=== PATIENT | male | born 1945 | race Caucasian/White ===

== ENCOUNTER 2018-04-06 19:57 | Observation (INO) ==
[2018-04-06] MEDS ORDERED: *HR* FentaNYL (PF) 100 MCG/2 ML VIAL IVP ONE (20:49)
[2018-04-06] MEDS ORDERED: Ketorolac 15 MG/ML VIAL IVP ONE (20:49)
[2018-04-06] MEDS ORDERED: 0.9 % Sodium Chloride 1,000 ML IVC ONE (20:49)
[2018-04-06] MEDS ORDERED: Ondansetron 4 MG/2 ML VIAL IVP ONE (20:49)
--- NOTE | 2018-04-06 20:52 | Emergency Department Note ---
Disposition Clinical Impression: Renal calculus, left, Hydroureter Hydronephrosis Qualifiers: Hydronephrosis type: unspecified Qualified Code(s): N13.30 - Unspecified hydronephrosis Disposition: Admitted As Inpatient Condition: Good Forms: ED Satisfaction Letter Time of Disposition: 20:59 General Adult HPI - General Chief complaint: ED Urogenital-Male Stated complaint: Kidney Stone Time Seen by Provider: 04/06/18 20:08 Source: patient, EMS Mode of arrival: EMS Limitations: no limitations Nursing Notes Reviewed: Yes Vital Signs Reviewed: Yes - History of Present Illness HPI Narrative: 72-year-old male history of hypertension and diabetes presents to the emergency department via EMS as a transfer from the [place] for left flank pain. Patient experience left flank pain this morning around 8 AM with radiation to the groin. He also reported dysuria. He went to the urgent care who diagnosed in with a 6 mm renal stone in the mid ureter with hydronephrosis and hydroureter. He was sent here for further evaluation and management. He reports nausea at this time. His pain is 7 of 10. No prior history of kidney stones. Pain Scale: 8 - Related Data Allergies Allergy/AdvReac Type Severity Reaction Status Date / Time No Known Allergies Allergy Verified 04/06/18 20:40 All systems ED: reviewed and negative except as stated. Review of Systems: As Per HPI Constitutional: Denies: fever, chills ENT ED: Denies: congestion Cardiovascular: Denies: chest pain Respiratory: Denies: dyspnea Gastrointestinal: Reports: nausea, vomiting. Denies: abdominal pain, diarrhea Genitourinary: Reports: dysuria, hematuria. Denies: urgency Musculoskeletal: Reports: back pain Integumentary: Denies: rash, abrasion Past Medical History - Past Medical History Attestation: Yes The following information was validated with the patient. Source: patient Medical history: Reports: cancer, diabetes Psychiatric history: Reports: no psych history - Social History Smoking Status: Never smoker Alcohol use: Reports: none Drug use: Reports: none Physical Exam - General Limitations: no limitations General appearance: alert, in no apparent distress - Head Head exam: atraumatic, normocephalic, normal inspection - Eye Eye exam: Present: normal appearance, PERRL, EOMI. Absent: scleral icterus - ENT ENT exam: normal exam, normal oropharynx, mucous membranes moist - Neck Neck exam: Present: normal inspection, full ROM, trachea midline - Chest Chest inspection: Present: normal inspection, symmetric chest wall rise - Respiratory Respiratory exam: Present: normal lung sounds bilaterally - Cardiovascular Cardiovascular exam: Present: regular rate, normal rhythm, normal heart sounds. Absent: systolic murmur, diastolic murmur - Abdominal Exam Abdominal exam: Present: soft, Non-Tender, normal bowel sounds. Absent: tenderness, distention, guarding, rebound, rigidity - Extremities Exam Extremities exam: Present: normal inspection, full ROM. Absent: tenderness, pedal edema - Back Exam Back exam: Present: normal inspection, full ROM, tenderness, CVA tenderness (L) - Neurological Exam Neurological exam: Present: alert, oriented X3 - Psychiatric Psychiatric exam: Present: normal affect, normal mood - Skin Skin exam: Present: warm, dry, intact, normal color. Absent: rash, cyanosis, diaphoresis Course Course Narrative: Review the CT scan shows 6 mm calculus in the mid left ureter resulting in moderate hydronephrosis and hydroureter. Labs were performed at outside facility with a WBC of 7.7, hemoglobin 15.8, sodium 134, potassium 5.2, creatinine 1.14 with eGFR greater than 60. Urinalysis shows a large blood and negative nitrite and leukocyte esterase. IV fluids and medications for symptom control. Patient will be admitted. - Consultations Consultation #1: Spoke with on-call hospitalist donte Jose to admit for left renal calculus. No further orders at this time Time: 21:17 Vital Signs Temperature 97.8 F 04/06/18 20:05 Pulse Rate 98 04/06/18 20:05 Respiratory Rate 16 04/06/18 20:05 Blood Pressure 166/93 04/06/18 20:05 O2 Sat by Pulse Oximetry 97 04/06/18 20:05 Temperature 97.8 F 04/06/18 20:05 Pulse Rate 98 04/06/18 20:05 Respiratory Rate 16 04/06/18 20:05 Blood Pressure 166/93 04/06/18 20:05 O2 Sat by Pulse Oximetry 97 04/06/18 20:05 Oxygen Delivery Oxygen Delivery Room Air Medical Decision Making - MDM Narrative Medical decision making narrative: Patient was discussed with my attending physician who agrees with ED management and final disposition. They independently evaluated the patient. Please refer to their attestation to this encounter for additional information. This note was generated by [employer] voice recognition software and as a result grammatical or spelling errors may occur using this program. - Medical Records Medical records reviewed: Yes I reviewed the patient's medical records.
[2018-04-06] MEDS ORDERED: Ketorolac 15 MG/ML VIAL IVP PRN (21:59)
[2018-04-06] MEDS ORDERED: Naloxone 0.4 MG/ML INJ IVP PRN (21:59)
[2018-04-06] MEDS ORDERED: Ondansetron 4 MG/2 ML VIAL IVP PRN (21:59)
[2018-04-06] MEDS ORDERED: Dextrose Gel 15 GM/37.5 ML TUBE PO PRN ×2 (22:03)
[2018-04-06] MEDS ORDERED: D5% in Water 1,000 ML IVC PRN (22:03)
[2018-04-06] MEDS ORDERED: *HR* Dextrose 50 % in Water (Syg) 50 ML SYRINGE IVP PRN (22:03)
[2018-04-06] MEDS ORDERED: Insulin LISPRO 300 UNITS/3 ML VIAL SQ SCH (22:15)
--- NOTE | 2018-04-06 23:02 | Emergency Department Note ---
Disposition Clinical Impression: Renal calculus, left, Hydroureter Hydronephrosis Qualifiers: Hydronephrosis type: unspecified Qualified Code(s): N13.30 - Unspecified hydronephrosis Disposition: Admitted As Inpatient Condition: Good General Adult HPI - General Chief complaint: ED Urogenital-Male Stated complaint: Kidney Stone Time Seen by Provider: 04/06/18 20:08 Source: patient, EMS Mode of arrival: EMS Limitations: no limitations Nursing Notes Reviewed: Yes Vital Signs Reviewed: Yes - History of Present Illness Pain Scale: 2 - Related Data Allergies Allergy/AdvReac Type Severity Reaction Status Date / Time No Known Allergies Allergy Verified 04/06/18 20:40 Constitutional: Denies: fever, chills ENT ED: Denies: congestion Cardiovascular: Denies: chest pain Respiratory: Denies: dyspnea Gastrointestinal: Reports: nausea, vomiting. Denies: abdominal pain, diarrhea Genitourinary: Reports: dysuria, hematuria. Denies: urgency Musculoskeletal: Reports: back pain Integumentary: Denies: rash, abrasion Past Medical History - Past Medical History Medical history: Reports: cancer, diabetes Psychiatric history: Reports: no psych history - Social History Smoking Status: Never smoker Alcohol use: Reports: none Drug use: Reports: none Physical Exam - General Limitations: no limitations General appearance: alert, in no apparent distress Course Vital Signs Temperature 97.8 F 04/06/18 20:05 Pulse Rate 98 04/06/18 20:05 Respiratory Rate 16 04/06/18 20:05 Blood Pressure 166/93 04/06/18 20:05 O2 Sat by Pulse Oximetry 97 04/06/18 20:05 Temperature 97.9 F 04/06/18 22:55 Pulse Rate 103 04/06/18 22:55 Respiratory Rate 18 04/06/18 22:55 Blood Pressure 142/89 04/06/18 22:55 O2 Sat by Pulse Oximetry 96 04/06/18 22:55 Oxygen Delivery Oxygen Delivery Room Air Attestation Statement - Attestation Attestation: I, Geovani Arias MD, personally evaluated this patient and discussed their management with the resident physician. I reviewed the resident's note and agree with the documented findings, medical decision making, and plan of care. 72-year-old male [facility] flank pain which started this morning. No prior history of kidney stones. He was seen at the [facility] and workup there revealed a 6 mm stone in the left ureter with moderate hydroureteronephrosis. Patient was transferred here for urology consultation. On examination patient is well-developed well-nourished well-appearing elderly male in no acute distress. He is alert and oriented 3. There is no cyanosis or diaphoresis. Breath sounds clear and equal bilaterally. Heart regular rate and rhythm. Abdomen soft and nontender with normal bowel sounds. Mild left CVA tenderness. Records from the [facility] reviewed. The hospitalist, Dr. Calderon, was consulted and accepted admission of the patient.
[2018-04-07] MEDS ORDERED: 0.9 % Sodium Chloride 1,000 ML ONE (00:14)
--- NOTE | 2018-04-07 01:24 | Internal Med History&Physical ---
Date of Encounter: 04/07/18 Time of Encounter: 01:24 Internal Medicine - H&P: HPI Chief complaint: Kidney Stone History of present illness: Mr. Collado is a 72 year old male with a past medical history of diabetes who initially presented to the [facility] earlier today due to left-sided flank pain. Patient states that pain began around 8 AM this morning and got steadily worse throughout the day. He describes it as a deep ache, 8 out of 10 in intensity, non-radiating and alleviated with certain movements. Patient denies any fever, chills, dysuria. He was nauseous but did not vomit. Patient went to the [facility] around 2:30 in the afternoon where a CT scan of the abdomen/pelvis was performed showing a 6 mm stone in the left ureter with moderate hydronephrosis. Laboratory workup showed no evidence of leukocytosis. Kidney function was within normal limits. UA showed positive hematuria and negative nitrites and leukocyte esterase. Patient transferred for urology consultation. Past Med Surg Social Fam HX - Past Medical History Medical history: cancer, diabetes Psychiatric history: no psych history - Past Surgical History Additional surgical history: port inserted and removed. liver biopsy - Social History Smoking Status: Never smoker Alcohol use: none Drug use: none Internal Medicine - H&P: Meds Aspirin [Lo-Dose Aspirin EC] 81 mg PO DAILY 04/07/18 [History] Carvedilol [Coreg] 6.25 mg PO BID 04/07/18 [History] Doxycycline Monohydrate [Mondoxyne Nl] 50 mg PO BID 04/07/18 [History] Fluticasone Propionate Nasal [Flonase] 120 spray NS DAILY 04/07/18 [History] Loratadine [Allergy Relief] 10 mg PO DAILY 04/07/18 [History] Losartan [Cozaar] 50 tab PO DAILY 04/07/18 [History] Metformin HCl [Glucophage] 1,000 tab PO BID 04/07/18 [History] Allergy/AdvReac Type Severity Reaction Status Date / Time No Known Allergies Allergy Verified 04/06/18 20:40 All Systems PM: A 10-system review of systems was performed and is negative for pertinent findings except as documented above in the HPI. - Constitutional Constitutional: no chills, no fever(s), no night sweats - EENT Eyes: no change in vision, no discharge, no pain, no photophobia Ears: no ear discharge, no ear pain, no tinnitus Nose, mouth and throat: no dysphagia, no nasal discharge, no neck pain, no sore throat - Cardiovascular Cardiovascular ROS IM: no chest pain, no diaphoresis, no dyspnea, no lightheadedness, no palpitations, no syncope - Respiratory Respiratory: no cough, no dyspnea, no wheezing, no excessive phlegm production - Gastrointestinal Gastrointestinal: no abdominal pain, no diarrhea, no hematemesis, no hematochezi a, no melena, no nausea, no vomiting - Musculoskeletal Musculoskeletal ROS IM: no numbness, no tingling - Integumentary Integumentary IM: no rash, no unusual bruising - Neurological Neurological ROS: no confusion, no convulsions, no focal weakness, no numbness, no tingling, no tremor(s) - Hematologic/Lymphatic Hematologic/Lymphatic: no easy bruising - Constitutional Vitals: Temp Pulse Resp BP Pulse Ox 97.9 F 103 18 142/89 96 04/06/18 22:55 04/06/18 22:55 04/06/18 22:55 04/06/18 22:55 04/06/18 22:55 Exam: General: Alert and oriented 3 lying in bed in no acute distress Skin:Normal color, no rash, no lesions. HEENT:EOM, pupils equal, round and reactive. Cardiovascular:Normal S1 & S2, no rubs, murmurs or gallops. No JVD. Pulse regular. Lungs:Normal breath sounds, no wheezes or crackles. Abdomen:Soft, non-tender, no rigidity. Mild left sided CVA tenderness Extremities:No deformity, no edema or tenderness, no joint swelling or clubbing. Neurological:Normal cognition and motor skills. Pulses:Carotid and radial pulses normal +2. Rest of the physical exam is non contributory Internal Med - H&P Results - Labs CBC & Chem 7: 04/07/18 04:51 04/07/18 04:51 - Assessment and plan (1) Renal calculus, left Current Visit: Yes Status: Acute Assessment and plan: Left-sided 6 mm renal calculus noted on CT scan of the abdomen and pelvis with moderate hydro-nephrosis the setting of significant left-sided flank pain. Pain much better after receiving narcotics in the ED -Continue with Pain control -IV fluids -Give 1 dose of tamsulosin -Urology consult (2) Hydronephrosis Current Visit: Yes Status: Acute Qualifiers: Hydronephrosis type: unspecified Qualified Code(s): N13.30 - Unspecified hydronephrosis (3) Hydroureter Current Visit: Yes Status: Acute (4) Diabetes Current Visit: Yes Status: Acute Assessment and plan: Blood glucose checks. Sliding scale insulin Qualifiers: Qualified Code(s): E11.9 - Type 2 diabetes mellitus without complications (5) Hypertension Current Visit: Yes Status: Acute Assessment and plan: BP mildly elevated likely secondary to pain. Continue pain control -Resume home antihypertensives Qualifiers: Hypertension type: unspecified Qualified Code(s): I10 - Essential (primary) hypertension (6) DVT prophylaxis Current Visit: Yes Status: Acute Assessment and plan: Subcutaneous heparin - Time Spent With Patient Total time spent is greater than 50% in coordination of care (as documented) at patient's floor/unit and/or counseling patient:
[2018-04-07] MEDS ORDERED: OXYCODONE Oral CONC 10 MG/0.5 ML ORAL.SYG SL PRN ×4 (02:12→17:28)
[2018-04-07] MEDS: *HR* Heparin 5,000 UNIT/ML VIAL SQ SCH ×4 (03:03→22:33)
[2018-04-07] MEDS: 0.9 % Sodium Chloride 1,000 ML IVC SCH ×2 (03:13→08:56)
[2018-04-07 05:23] LABS: Basophils % 0.4 %; Eosinophils # 0.1 K/mcL (0.0-0.6); Hematocrit 41.1 % (37.5-50.1); Hemoglobin 14.3 g/dL (12.9-16.9); Immature Granulocytes % 0.3 % (0-4); Lymphocytes # 1.6 K/mcL (0.6-4.6); Lymphocytes % 22.5 %; Mean Corpuscular HGB Conc 34.8 g/dL (31.6-35.5); Mean Corpuscular Hemoglobin 31.2 pg (28.0-33.3); Mean Corpuscular Volume 89.5 fL (83.0-100.0); Mean Platelet Volume 10.6 fL (9.4-12.4); Monocytes # 0.8 K/mcL (0.0-1.3); Neutrophils # 4.6 K/mcL (1.6-8.9); Platelet Count 114 K/mcL (140-400); Red Blood Count 4.59 M/mcL (4.19-5.50); Red Cell Distribution Width 12.7 % (11.5-14.5); Segmented Neutrophils % 64.8 %
[2018-04-07 05:42] LABS: Albumin 4.2 g/dL (3.5-5.7); Albumin/Globulin Ratio 2.8 (1.1-2.2); Bilirubin,Total 1.3 mg/dL (0.3-1.0); Calcium 8.7 mg/dL (8.6-10.3); Globulin 1.5 g/dL (2.4-3.5); Potassium 4.2 mEq/L (3.5-5.1); Total Protein 5.7 g/dL (6.4-8.9)
--- NOTE | 2018-04-07 08:17 | Urology - Consult Note ---
<Christiane Burdick N - Last Filed: 04/07/18 08:15> Date of Encounter: 04/07/18 Time of Encounter: 07:45 - Assessment and Plan (1) Ureteral calculus, left Current Visit: Yes Status: Acute Assessment and plan: Patient is a 72-year-old male who presents with a 6 mm left ureteral stone. Vital signs are stable and afebrile. White blood cell count reassuring. Creatinine slightly elevated at 1.41. Discussed surgical risks and benefits including bleeding, infection, scarring, stricture, damage to urinary tract, anesthesia risks, blood clots. Patient verbalized understanding, and consent has been signed. Patient will remain nothing by mouth. Patient is prepared to undergo a left ureteroscopic stone extraction with holmium laser lithotripsy, basket retrieval, and left ureteral stent placement with Dr. Brasher. (2) Hydronephrosis Current Visit: Yes Status: Acute Qualifiers: Hydronephrosis type: unspecified Qualified Code(s): N13.30 - Unspecified hydronephrosis Urology CN:HPI Consult date: 04/07/18 History of present illness: Patient is a 72-year-old male who presents with a 6mm left ureteral stone and moderate hydronephrosis. Patient presented to the [facility] yesterday with complaints of left-sided flank pain and nausea. Patient underwent a CT scan of abdomen and pelvis revealing a 6 mm ureteral stone and was subsequently transferred to [facility] for urologic intervention. Patient states this is the first renal stone he has ever experienced. Patient does state, however, that he has a family history of renal stones through his brother. Currently, patient states his pain is well-controlled and he is experiencing some mild hesitancy. Patient denies fever, chills, gross hematuria, dysuria, frequency, urgency, incontinence. Past Med Surg Social Fam HX - Past Medical History Medical history: cancer, diabetes Psychiatric history: no psych history - Past Surgical History Additional surgical history: port inserted and removed. liver biopsy - Social History Smoking Status: Never smoker Alcohol use: none Drug use: none Medications and Allergies Aspirin [Lo-Dose Aspirin EC] 81 mg PO DAILY 04/07/18 [History] Carvedilol [Coreg] 6.25 mg PO BID 04/07/18 [History] Doxycycline Monohydrate [Mondoxyne Nl] 50 mg PO BID 04/07/18 [History] Fluticasone Propionate Nasal [Flonase] 120 spray NS DAILY 04/07/18 [History] Hydrocodone/Acetaminophen [Seymour 5-325 Tablet] 1 each PO Q6H 2 Days #8 tablet 04/07/18 [Rx] Loratadine [Allergy Relief] 10 mg PO DAILY 04/07/18 [History] Losartan [Cozaar] 50 tab PO DAILY 04/07/18 [History] Metformin HCl [Glucophage] 1,000 tab PO BID 04/07/18 [History] Allergy/AdvReac Type Severity Reaction Status Date / Time No Known Allergies Allergy Verified 04/06/18 20:40 Review of Systems - Constitutional no chills, no fatigue, no fever(s) - EENT Nose, mouth and throat: no dizziness, no headache(s) - Cardiovascular no chest pain, no diaphoresis, no dyspnea - Respiratory no cough, no dyspnea - Gastrointestinal nausea, no abdominal pain, no vomiting - Genitourinary flank pain (left ), urinary hesitancy, no change in urinary stream, no difficulty urinating, no hematuria, no urinary frequency, no urinary incontinence, no urinary urgency - Musculoskeletal no back pain, no muscle weakness - Integumentary no erythema, no rash - Neurological no confusion, no syncope - Psychiatric no anxiety, no confusion - Hematologic/Lymphatic no easy bleeding, no easy bruising - Allergic/Immunologic no throat swelling, no wheezing Exam Initial Vital Signs Temp Pulse Resp BP Pulse Ox 97.8 F 98 16 166/93 97 04/06/18 20:05 04/06/18 20:05 04/06/18 20:05 04/06/18 20:05 04/06/18 20:05 - General physical appearance Present: well developed, no distress, no pain - Eyes Present: PERRL, normal ocular movement - ENT Present: normal nares, no hearing loss, no congestion - Neck Present: no masses, trachea midline - Respiratory Present: normal respiratory effort - Abdomen Abdomen: Present: soft, non tender - Integumentary Present: no rash, no abnormal pigmentation - Neurologic Present: normal coordination - Musculoskeletal Present: other (normal posture ) Urology Results - Labs 04/07/18 04:51 04/07/18 04:51 Abnormal lab results Plt Count 114 K/mcL (140-400) L 04/07/18 04:51 Sodium 135 mEq/L (136-145) L 04/07/18 04:51 Carbon Dioxide 22 mEq/L (23-29) L 04/07/18 04:51 BUN 27 mg/dL (8-23) H 04/07/18 04:51 Creatinine 1.41 mg/dL (0.70-1.30) H 04/07/18 04:51 Est GFR (Non-Af Amer) 49 (> 60) L 04/07/18 04:51 Glucose 141 mg/dL (70-105) H 04/07/18 04:51 POC Glucose 156 mg/dL (70-99) H 04/06/18 22:50 Total Bilirubin 1.3 mg/dL (0.3-1.0) H 04/07/18 04:51 Serum Total Protein 5.7 g/dL (6.4-8.9) L 04/07/18 04:51 Globulin 1.5 g/dL (2.4-3.5) L 04/07/18 04:51 Albumin/Globulin Ratio 2.8 (1.1-2.2) H 04/07/18 04:51 Diabetes panel 04/07/18 Range/Units 04:51 Sodium 135 L (136-145) mEq/L Potassium 4.2 (3.5-5.1) mEq/L Chloride 103 (98-107) mEq/L Carbon Dioxide 22 L (23-29) mEq/L BUN 27 H (8-23) mg/dL Creatinine 1.41 H (0.70-1.30) mg/dL Glucose 141 H (70-105) mg/dL Calcium 8.7 (8.6-10.3) mg/dL AST 24 (13-39) Units/L ALT 31 (7-52) Units/L Alkaline Phosphatase 37 (34-104) Units/L Albumin 4.2 (3.5-5.7) g/dL Calcium panel 04/07/18 Range/Units 04:51 Calcium 8.7 (8.6-10.3) mg/dL Albumin 4.2 (3.5-5.7) g/dL Pituitary panel 04/07/18 Range/Units 04:51 Sodium 135 L (136-145) mEq/L Potassium 4.2 (3.5-5.1) mEq/L Chloride 103 (98-107) mEq/L Carbon Dioxide 22 L (23-29) mEq/L BUN 27 H (8-23) mg/dL Creatinine 1.41 H (0.70-1.30) mg/dL Glucose 141 H (70-105) mg/dL Calcium 8.7 (8.6-10.3) mg/dL Adrenal panel 04/07/18 Range/Units 04:51 Sodium 135 L (136-145) mEq/L Potassium 4.2 (3.5-5.1) mEq/L Chloride 103 (98-107) mEq/L Carbon Dioxide 22 L (23-29) mEq/L BUN 27 H (8-23) mg/dL Creatinine 1.41 H (0.70-1.30) mg/dL Glucose 141 H (70-105) mg/dL Calcium 8.7 (8.6-10.3) mg/dL Total Bilirubin 1.3 H (0.3-1.0) mg/dL AST 24 (13-39) Units/L ALT 31 (7-52) Units/L Alkaline Phosphatase 37 (34-104) Units/L Albumin 4.2 (3.5-5.7) g/dL All other labs normal. - Imaging CT scan - abdomen: report reviewed CT scan - pelvis: report reviewed Consult Discharge Plan - Plan Referrals: Duarte Brasher MD [Partnered Physician] - 04/25/18 9:00 am () [place],PCP [Primary Care Provider] - 04/12/18 2:30 pm (Follow up will take place in [facility]) Prescriptions: Hydrocodone/Acetaminophen [Seymour 5-325 Tablet] 1 each PO Q6H 2 Days #8 tablet <Duarte Brasher - Last Filed: 04/07/18 16:07> Date of Encounter: 04/07/18 - Assessment and Plan (1) Ureteral calculus, left Current Visit: Yes Status: Acute Assessment and plan: I agree with plan as written by Christiane Burdick. to or today for stone extractino vs stent placement. Exam Initial Vital Signs Temp Pulse Resp BP Pulse Ox 97.8 F 98 16 166/93 97 04/06/18 20:05 04/06/18 20:05 04/06/18 20:05 04/06/18 20:05 04/06/18 20:05 Urology Results - Labs 04/07/18 04:51 04/07/18 04:51 Abnormal lab results Plt Count 114 K/mcL (140-400) L 04/07/18 04:51 Sodium 135 mEq/L (136-145) L 04/07/18 04:51 Carbon Dioxide 22 mEq/L (23-29) L 04/07/18 04:51 BUN 27 mg/dL (8-23) H 04/07/18 04:51 Creatinine 1.41 mg/dL (0.70-1.30) H 04/07/18 04:51 Est GFR (Non-Af Amer) 49 (> 60) L 04/07/18 04:51 Glucose 141 mg/dL (70-105) H 04/07/18 04:51 POC Glucose 156 mg/dL (70-99) H 04/06/18 22:50 Total Bilirubin 1.3 mg/dL (0.3-1.0) H 04/07/18 04:51 Serum Total Protein 5.7 g/dL (6.4-8.9) L 04/07/18 04:51 Globulin 1.5 g/dL (2.4-3.5) L 04/07/18 04:51 Albumin/Globulin Ratio 2.8 (1.1-2.2) H 04/07/18 04:51 Diabetes panel 04/07/18 Range/Units 04:51 Sodium 135 L (136-145) mEq/L Potassium 4.2 (3.5-5.1) mEq/L Chloride 103 (98-107) mEq/L Carbon Dioxide 22 L (23-29) mEq/L BUN 27 H (8-23) mg/dL Creatinine 1.41 H (0.70-1.30) mg/dL Glucose 141 H (70-105) mg/dL Calcium 8.7 (8.6-10.3) mg/dL AST 24 (13-39) Units/L ALT 31 (7-52) Units/L Alkaline Phosphatase 37 (34-104) Units/L Albumin 4.2 (3.5-5.7) g/dL Calcium panel 04/07/18 Range/Units 04:51 Calcium 8.7 (8.6-10.3) mg/dL Albumin 4.2 (3.5-5.7) g/dL Pituitary panel 04/07/18 Range/Units 04:51 Sodium 135 L (136-145) mEq/L Potassium 4.2 (3.5-5.1) mEq/L Chloride 103 (98-107) mEq/L Carbon Dioxide 22 L (23-29) mEq/L BUN 27 H (8-23) mg/dL Creatinine 1.41 H (0.70-1.30) mg/dL Glucose 141 H (70-105) mg/dL Calcium 8.7 (8.6-10.3) mg/dL Adrenal panel 04/07/18 Range/Units 04:51 Sodium 135 L (136-145) mEq/L Potassium 4.2 (3.5-5.1) mEq/L Chloride 103 (98-107) mEq/L Carbon Dioxide 22 L (23-29) mEq/L BUN 27 H (8-23) mg/dL Creatinine 1.41 H (0.70-1.30) mg/dL Glucose 141 H (70-105) mg/dL Calcium 8.7 (8.6-10.3) mg/dL Total Bilirubin 1.3 H (0.3-1.0) mg/dL AST 24 (13-39) Units/L ALT 31 (7-52) Units/L Alkaline Phosphatase 37 (34-104) Units/L Albumin 4.2 (3.5-5.7) g/dL All other labs normal.
[2018-04-07] MEDS ORDERED: Loratadine 10 MG TABLET PO SCH (09:00)
[2018-04-07] MEDS ORDERED: Fluticasone Propionate Nasal 50 MCG/SPRAY BOTTLE NS SCH (09:00)
[2018-04-07] MEDS ORDERED: Aspirin Enteric Coated 81 MG Tablet PO SCH (09:00)
--- NOTE | 2018-04-07 10:04 | Discharge Summary ---
Orders not resulted at time of discharge: Pending orders 04/08/18 04:00 BMP [Basic Metabolic Panel] AM 0400 Complete Blood Count [HEME] AM 0400 Magnesium AM 0400 Date of Encounter: 04/07/18 Time of Encounter: 10:02 - Discharge Diagnosis (1) Renal calculus, left Priority: Primary Status: Acute (2) Hydroureter Priority: Primary Status: Acute (3) Hydronephrosis Priority: Primary Status: Acute Qualifiers: Hydronephrosis type: unspecified Qualified Code(s): N13.30 - Unspecified hydronephrosis (4) Hypertension Priority: Secondary Status: Acute Qualifiers: Hypertension type: unspecified Qualified Code(s): I10 - Essential (primary) hypertension (5) Diabetes Priority: Secondary Status: Acute Qualifiers: Diabetes mellitus type: type 2 Diabetes mellitus [facility] insulin use: without termite treater helper use Diabetes mellitus complication status: without complication Qualified Code(s): E11.9 - Type 2 diabetes mellitus without complications Hospital course: Mr. Collado is a 72 year old male with a past medical history of diabetes who initially presented to the OR earlier today due to left-sided flank pain. Patient stated that pain began around 8 AM this morning and got steadily worse throughout the day. He was nauseous but did not vomit. [facility] where a CT scan of the abdomen/pelvis was performed showing a 6 mm stone in the left ureter with moderate hydronephrosis. Laboratory workup showed no evidence of leukocytosis. Kidney function was elevated with a creatinine of 1.41. I was able to obtain records [facility] that showed what seems like a chronic kidney disease. The patient says he has had issues with his kidneys in the past although he is not exactly what. His creatinine was mildly above baseline at the time around 1.1. He was taken to the OR by Dr. Brasher from urology and underwent left lithrotripsy and stone extraction and stent placement. His kidney function should show some recover towards baseline after his procedure and resolution of the hydronephrosis. He was discharged when cleared by urology post op. He was stable on day of discharge. - Time Spent with Patient Total time spent providing and/or coordinating discharge services: Greater than 30 minutes - Discharge Medications Prescriptions: Hydrocodone/Acetaminophen [[place] 5-325 Tablet] 1 each PO Q6H 2 Days #8 tablet Home Medications: Aspirin [Lo-Dose Aspirin EC] 81 mg PO DAILY 04/07/18 [History] Carvedilol [Coreg] 6.25 mg PO BID 04/07/18 [History] Doxycycline Monohydrate [Mondoxyne Nl] 50 mg PO BID 04/07/18 [History] Fluticasone Propionate Nasal [Flonase] 120 spray NS DAILY 04/07/18 [History] Hydrocodone/Acetaminophen [[place] 5-325 Tablet] 1 each PO Q6H 2 Days #8 tablet 04/07/18 [Rx] Loratadine [Allergy Relief] 10 mg PO DAILY 04/07/18 [History] Losartan [Cozaar] 50 tab PO DAILY 04/07/18 [History] Metformin HCl [Glucophage] 1,000 tab PO BID 04/07/18 [History] Allergies/Adverse Reactions: Allergy/AdvReac Type Severity Reaction Status Date / Time No Known Allergies Allergy Verified 04/06/18 20:40 Date of admission: 04/06/18 21:34 Primary care physician: [facility] Consults: 04/06/18 21:04 Consult to Urology [CONS] Stat Consulting Provider: Urology Barb Reason for Consult: kidney stone Time Notified: 21:05 Call Completed: Yes - Constitutional Vitals: Temp Pulse Resp BP Pulse Ox 98.0 F 96 18 127/79 93 04/07/18 08:29 04/07/18 08:29 04/07/18 08:29 04/07/18 08:29 04/07/18 09:03 Exam: GEN: NAD HEENT: AT, NC, No cyanosis, oral mucosa is moist, No JVD Lymphatics: No lymphadenoapthy Eyes: Extrocular muscles intact, anicteric CVS:RRR. S1, S2, No m/r/g RESP: CTAB ABD: Soft, NT, ND, +BS EXT: No edema, No rashes, 2+ DP NEURO: Nonfocal, CN II-XII intact, No focal motor or sensory deficits Psych: Cooperative, Not anxious or depressed - Patient Status Disposition: Home, Self-Care Condition: Good Overall status at discharge: patient is progressing back to baseline - Discharge Instructions Follow Up With: Duarte Brasher MD [Partnered Physician] - 04/25/18 9:00 am () [facility] [Primary Care Provider[facility] - 04/12/18 2:30 pm (Follow up will take place in [facility]) - Diet and Activity Activity: increase activity as tolerated Diet: diabetic diet
[2018-04-07] MEDS: Insulin LISPRO 300 UNITS/3 ML VIAL SQ SCH ×2 (11:08→16:01)
--- NOTE | 2018-04-07 14:56 | Anesthesia Evaluation PreOp ---
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 History: Denies Any Significant HX Other Medical History: Renal (hydronephrosis), Diabetes Type II Anesthesia History: No Prior Anesthetic Complications, Past Anesthesia Alcohol Use: none Drug use: none Medications and Allergies Aspirin [Lo-Dose Aspirin EC] 81 mg PO DAILY 04/07/18 [History] Carvedilol [Coreg] 6.25 mg PO BID 04/07/18 [History] Doxycycline Monohydrate [Mondoxyne Nl] 50 mg PO BID 04/07/18 [History] Fluticasone Propionate Nasal [Flonase] 120 spray NS DAILY 04/07/18 [History] Hydrocodone/Acetaminophen [[place] 5-325 Tablet] 1 each PO Q6H 2 Days #8 tablet [Rx] Loratadine [Allergy Relief] 10 mg PO DAILY 04/07/18 [History] Losartan [Cozaar] 50 tab PO DAILY 04/07/18 [History] Metformin HCl [Glucophage] 1,000 tab PO BID 04/07/18 [History] Allergy/AdvReac Type Severity Reaction Status Date / Time No Known Allergies Allergy Verified 04/06/18 20:40 - Meds/Allergy Pre-op Review Medications Reviewed: Yes Allergies Reviewed: Yes Beta Blockers on Current Med List: Yes ([id number]) Anesthesia Results - Labs 04/07/18 04:51 04/07/18 04:51 - Imaging EKG: other (patient had multiple cardio/EKG evaluations when he had CLL. He has been stable with no significant cardiac disease.) Anesthesia Exam Selected Entries 04/07/18 11:26 Temperature 97.8 F Pulse Rate 91 Respiratory Rate 18 Blood Pressure 136/85 O2 Sat by Pulse Oximetry 94 Weight: 98 kg NPO (# of Hours): over 8 hours - HEENT Pupil (Motor): Pupils equal Mallampati: II Teeth: Normal Oral Opening: Greater than 3 - Cardiac Rhythm: Regular Murmur: None - Pulmonary Breath Sounds: bilateral Clear Respiratory Effort: Symmetrical Anesthesia Assess/Plan ASA Score: 2 Level of consciousness: Cooperative Anesthetic Plan: General Monitoring Plan: Standard Monitors Recovery Plan: PACU (Discussed GA, risks. Agreed to proceed.)
[2018-04-07] MEDS ORDERED: Lidocaine -MPF 2% 2 ML VIAL ONE (15:38)
[2018-04-07] MEDS ORDERED: *HR* FentaNYL (PF) 100 MCG/2 ML VIAL ONE (15:38)
[2018-04-07] MEDS ORDERED: Ondansetron 4 MG/2 ML VIAL ONE (15:38)
[2018-04-07] MEDS ORDERED: *HR* Propofol 200 MG/20 ML VIAL IVP ONE (15:38)
[2018-04-07] MEDS ORDERED: Dexamethasone 4 MG/ML VIAL ONE (15:38)
[2018-04-07] MEDS ORDERED: *HR* Phenylephrine 10 MG/ML VIAL ONE (16:27)
[2018-04-07] MEDS ORDERED: Acetaminophen IV 1,000 MG/100 ML INFUS..BTL IVPB ONE (17:00)
[2018-04-07] MEDS ORDERED: *HR* OxyCODONE Immed Rel 5 MG TABLET PO PRN (17:00)
[2018-04-07] MEDS ORDERED: *HR* Meperidine 25 MG/ML SYRINGE IVP PRN (17:00)
[2018-04-07] MEDS ORDERED: *HR* HYDROmorphone (PF) 1 MG/ML SYRINGE IVP PRN (17:00)
--- NOTE | 2018-04-07 17:20 | Anesthesia Evaluation Post Op ---
Date of Encounter: 04/07/18 Time of Encounter: 17:20 - Vital Signs Vital Signs: Vital Signs Temperature 97.8 F 04/06/18 20:05 Pulse Rate 98 04/06/18 20:05 Respiratory Rate 16 04/06/18 20:05 Blood Pressure 166/93 04/06/18 20:05 O2 Sat by Pulse Oximetry 97 04/06/18 20:05 Temperature 97.5 F L 04/07/18 16:56 Pulse Rate 84 04/07/18 17:16 Respiratory Rate 16 04/07/18 17:16 Blood Pressure 112/69 04/07/18 17:16 O2 Sat by Pulse Oximetry 97 04/07/18 17:16 Oxygen Delivery Oxygen Delivery Room Air - Airway Airway: Non-obstructed - Cardiovascular Regular Rate - Mental Status Mental Status: Alert & Oriented, Answers Appropriately - Pain Pain Scale: 0 Pain Scale used: Numeric (1 - 10) - Nausea Vomiting Nausea Vomiting: Not Present - Hydration Hydration: Tolerates oral liquids - Discharge PostOp Status: Transfer Patient to floor
--- NOTE | 2018-04-07 17:26 | Operative Note ---
Date of procedure: 04/07/18 Pre-op diagnosis: left ureteral stone Post-op diagnosis: same Procedure: Left ureteroscopic laser lithotripsy of stone, left ureteroscopic basket retrieval stone fragment, left 4.8 x 28 cm ureteral stent placement Anesthesia: GETA Surgeon: Duarte Brasher Was there an data analysis assistant present: No Estimated blood loss (cc): 5 Specimen: Left ureteral stone Condition: stable Disposition: PACU Procedure in Detail: Patient was prepped and draped in normal sterile fashion. Timeout procedure performed. I then inserted the semirigid ureteroscope into the patient's bladder. I then placed a sensor wire up the left ureteral orifice and proceeded to dilate the distal ureter using 8/10 dilation sheath. I then replaced the semirigid ureteroscope and was able to advance this up to the proximal ureter were encountered the proximal 6 mm stone. I then was able to engage this in a basket and remove it more distally. I then using holmium laser to fragment the stone. All stone fragments were then removed from the patient's ureter using a basket device. I then placed a sensor wire back into the left kidney and placed a 4.8 x 28 cm stent with good curl seen in the left kidney and in the bladder. A string was left for easy removal in 2-3 days.
[2018-04-07] MEDS ORDERED: *HR* Dextrose 50 % in Water (Syg) 50 ML SYRINGE IVP PRN (17:28)
[2018-04-07] MEDS ORDERED: Naloxone 0.4 MG/ML INJ IVP PRN (17:28)
[2018-04-07] MEDS ORDERED: Ketorolac 15 MG/ML VIAL IVP PRN (17:28)
[2018-04-07] MEDS ORDERED: Ondansetron 4 MG/2 ML VIAL IVP PRN (17:28)
[2018-04-07] MEDS ORDERED: D5% in Water 1,000 ML IVC PRN (17:28)
[2018-04-07] MEDS ORDERED: 0.9 % Sodium Chloride 1,000 ML IVC SCH (17:28)
[2018-04-07] MEDS ORDERED: Dextrose Gel 15 GM/37.5 ML TUBE PO PRN ×2 (17:28)
[2018-04-07] MEDS ORDERED: Insulin LISPRO 300 UNITS/3 ML VIAL SQ SCH ×2 (21:00)
[2018-04-08] MEDS: *HR* Heparin 5,000 UNIT/ML VIAL SQ SCH (05:01)
[2018-04-08] MEDS ORDERED: Insulin LISPRO 300 UNITS/3 ML VIAL SQ SCH (07:30)
[2018-04-08 07:34] LABS: Basophils % 0.4 %; Eosinophils % 0.7 %; Hemoglobin 14.2 g/dL (12.9-16.9); Immature Granulocytes % 0.4 % (0-4); Mean Corpuscular Hemoglobin 31.6 pg (28.0-33.3)
[2018-04-08 07:35] LABS: Hematocrit 40.3 % (37.5-50.1); Immature Platelets 2.9 % (1.1-6.1); Lymphocytes # 1.1 K/mcL (0.6-4.6); Lymphocytes % 19.3 %; Mean Corpuscular HGB Conc 35.2 g/dL (31.6-35.5); Mean Corpuscular Volume 89.6 fL (83.0-100.0); Mean Platelet Volume 10.1 fL (9.4-12.4); Monocytes # 0.5 K/mcL (0.0-1.3); Monocytes % 9.9 %; Neutrophils # 3.8 K/mcL (1.6-8.9); Platelet Count 100 K/mcL (140-400); Red Cell Distribution Width 12.9 % (11.5-14.5); Segmented Neutrophils % 69.3 %
[2018-04-08 07:43] VITALS: BP 153/93
[2018-04-08 07:48] LABS: BUN/Creatinine Ratio 20 (6-26); Blood Urea Nitrogen 25 mg/dL (8-23); Calcium 8.8 mg/dL (8.6-10.3); Carbon Dioxide 27 mEq/L (23-29); Chloride 108 mEq/L (98-107); Glucose 156 mg/dL (70-105); Osmolality,Calculated 300 (280-300); Potassium 4.2 mEq/L (3.5-5.1); Sodium 141 mEq/L (136-145); eGFR For Non-African Americans 58 (> 60)
--- NOTE | 2018-04-08 08:32 | Urology Progress Note ---
Date of Encounter: 04/08/18 Time of Encounter: 08:31 - Assessment and Plan (1) Ureteral calculus, left Current Visit: Yes Status: Acute Assessment and plan: Status post removal. Patient's stent was removed in its entirety. Patient will have follow-up scheduled from my office. We will call the patient for his follow[facility]up as [facility]. Progress Note Narrative: Postoperative day 1 after left ureteroscopy and removal stone. Patient states that he undid his tape and pulled on his string last night. He is unsure why he did this. Patient has had continuous leakage of urine ever since doing this. Objective Initial Vital Signs Temp Pulse Resp BP Pulse Ox 97.8 F 98 16 166/93 97 04/06/18 20:05 04/06/18 20:05 04/06/18 20:05 04/06/18 20:05 04/06/18 20:05 - General physical appearance Present: well developed, well nourished - Abdomen Present: soft. Absent: tender - Genitourinary Present: normal penis with no external lesions (With string coming from penis obviously further out than should be) - Labs 04/08/18 07:11 04/08/18 07:11 Diabetes panel 04/08/18 Range/Units 07:11 Sodium 141 (136-145) mEq/L Potassium 4.2 (3.5-5.1) mEq/L Chloride 108 H (98-107) mEq/L Carbon Dioxide 27 (23-29) mEq/L BUN 25 H (8-23) mg/dL Creatinine 1.22 (0.70-1.30) mg/dL Glucose 156 H (70-105) mg/dL Calcium 8.8 (8.6-10.3) mg/dL Calcium panel 04/08/18 Range/Units 07:11 Calcium 8.8 (8.6-10.3) mg/dL Pituitary panel 04/08/18 Range/Units 07:11 Sodium 141 (136-145) mEq/L Potassium 4.2 (3.5-5.1) mEq/L Chloride 108 H (98-107) mEq/L Carbon Dioxide 27 (23-29) mEq/L BUN 25 H (8-23) mg/dL Creatinine 1.22 (0.70-1.30) mg/dL Glucose 156 H (70-105) mg/dL Calcium 8.8 (8.6-10.3) mg/dL Adrenal panel 04/08/18 Range/Units 07:11 Sodium 141 (136-145) mEq/L Potassium 4.2 (3.5-5.1) mEq/L Chloride 108 H (98-107) mEq/L Carbon Dioxide 27 (23-29) mEq/L BUN 25 H (8-23) mg/dL Creatinine 1.22 (0.70-1.30) mg/dL Glucose 156 H (70-105) mg/dL Calcium 8.8 (8.6-10.3) mg/dL Consult Discharge Plan - Plan Referrals: Duarte Brasher MD [Partnered Physician] - 04/25/18 9:00 am (Please follow up as schedule...) YUE,PCP [Primary Care Provider] - 04/12/18 2:30 pm (Follow up will take place in [facility]) Prescriptions: Hydrocodone/Acetaminophen [[place] 5-325 Tablet] 1 each PO Q6H 2 Days #8 tablet
[2018-04-08] MEDS ORDERED: Fluticasone Propionate Nasal 50 MCG/SPRAY BOTTLE NS SCH (09:00)
[2018-04-08] MEDS ORDERED: Loratadine 10 MG TABLET PO SCH (09:00)
[2018-04-08] MEDS ORDERED: Aspirin Enteric Coated 81 MG Tablet PO SCH (09:00)
[2018-04-13 11:13] LABS: Calculi Mass 12 mg
== END 2018-04-08 10:03 | disposition home or self-care (01) ==
LOC: 2ANU 19:57 → EMEROOARM 19:57 → SUATTDRO 21:34 → 2ANU 22:14
PROVIDERS: ADMIT Internal Medicine; ATTEND Internal Medicine